=== PATIENT | female | born 1945 | race Caucasian/White ===

== ENCOUNTER → 2017-11-04 12:53 | Outpatient (CLI) | payer MEDICARE, SELFPAY ==
--- NOTE | 2017-11-04 09:00 | PET_ITS ---
EXAMINATION: FDG PET-CT INDICATIONS: A 72-year-old female with reported history of primary breast and lung carcinoma presenting for restaging examination. COMPARISON EXAMINATION: None available INDEX LESION SIZE SUV INTERPRETATION Mediastinum, multifocal 16.2-mm (largest) (frame 206) 7.9 (max) Fulfills quantitative criteria for viable neoplasm Left lateral neck, bilateral anterior neck, right supraclavicular region lymphadenopathy 20.8 x 22.4-mm (largest) (frame 241) 18.9 (max) Fulfills quantitative criteria for viable neoplasm Left adrenal gland 6.7 Fulfills quantitative criteria for viable neoplasm Abdominal retroperitoneum, meño-hepatis 18.3 x 18.9-mm (largest) (frame 148) 9.7 (max) Fulfills quantitative criteria for viable neoplasm Right lobe hepatic parenchyma (n=2) segment VIII 28.4 x 22.5-mm (largest) (Frame 105) 13.6 (max) ratio > 2.0 Fulfills quantitative criteria for viable neoplasm Sacrum 6.9 Fulfills quantitative criteria for viable neoplasm TECHNIQUE: Following the intravenous administration of F-18 deoxyglucose, multiplanar image acquisitions of the neck, chest, abdomen and pelvis to level of mid thigh, obtained at one hour post radiopharmaceutical administration contemporaneously interpreted with the current CT of the neck, chest, abdomen and pelvis, to level of mid thigh, dated 11/04/17 via coregistration reveals: FINDINGS: 1. Multifocal increased glucose concentration is noted in the superior-subcarinal anterior and middle mediastinum generating a corrected maximum calculated standard uptake value of 7.9. The maximal axial diameter of the largest, non-calcified most conspicuous hypermetabolic soft tissue density on review of CT of the thorax dated 11/04/17 is 16.2-mm (transverse). 2. An increase in radiopharmaceutical uptake is demonstrated in the left lateral neck involving level II-A, III, right supraclavicular region and bilateral anterior neck generating a corrected maximum calculated standard uptake value of 18.9. The maximal axial diameter of the largest individual hypermetabolic soft tissue density on review of CT of the neck dated 11/04/17 is approximately 20.8-mm (transverse) x 22.4-mm (AP). 3. Increased labeled glucose concentration is defined in the left upper abdomen which appears contiguous to the left adrenal gland generating a corrected maximum calculated standard uptake value of 6.7. 4. Enhanced glucose metabolism is demonstrated in the upper abdominal retroperitoneum in the midline and distribution of the meño-hepatis corresponding to soft tissue adenopathy generating a corrected maximum calculated standard uptake value of 9.7. The maximal axial diameter of the largest individual hypermetabolic soft tissue density on review of CT of the abdomen dated 11/04/17 is 18.3-mm (transverse) x 18.9-mm (AP). 5. Facilitated glucose concentration is visualized in the right lobe of the hepatic (2.8) parenchyma involving segment VIII in two separate nodular presentations, rendering a corrected maximum calculated standard uptake value of 13.6, with a lesion to liver background ratio greater than 2.0. The maximal axial diameter of the largest, most conspicuous metabolic abnormality on review of CT of the abdomen dated 11/04/17 is 28.4-mm (transverse) x 22.5-mm (AP). 6. Increased radiotracer concentration is defined in the sacrum-second sacral segment generating a corrected maximum calculated standard uptake value of 6.9. 7. Normal physiologic distribution of the radiopharmaceutical is apparent in the splenic parenchyma, both renal units, bladder and visualized intestinal tract. The visualized portion of the cerebral cortex, cerebellar hemispheres and basal ganglia demonstrates uniform and preserved glucose metabolism. Diffuse radiopharmaceutical concentration is noted in all four quadrants of the abdomen and pelvis. Symmetric muscle tension artifact is noted in the subscapularis musculature bilaterally. Pertinent CT findings are as follows: CHEST: Emphysematous change is noted in the bilateral upper-mid lung zones. There are no parenchymal densities-nodules demonstrated in the right-left hemithorax manifesting quantitatively significant increased glucose metabolism. Surgical clips are identified in the right axilla. The right breast is surgically absent. A prominent pericardial effusion is defined without evidence of increased glucose metabolism. There is atherosclerotic calcification defined in the thoracic aorta without evidence of dilatation-aneurysm formation. Coronary arterial calcification is observed. Calcified mediastinal and thoracic perihilar soft tissue is ametabolic. ABDOMEN AND PELVIS: There is atherosclerotic calcification defined in the abdominal aorta without evidence of dilatation-aneurysm formation. Abdominal-pelvic arterial calcification is observed. Calcifications appear evident in the region of the pancreatic body. Bilateral subcentimeter inguinal soft tissue densities are non-glucose avid. The uterus is not clearly identified. Calcified granuloma formation is noted within the splenic parenchyma. SKELETAL: Degenerative changes are noted in the cervical, thoracic and lumbar spine. There are no well-defined sclerotic-lytic changes manifest on review of the appendicular-axial skeletal structures. PET/PET/CT Tumor Base -Thigh Init IMPRESSION: 1. ABNORMAL EXAMINATION INDICATIVE OF MALIGNANT VIABLE NEOPLASM. 2. Increased glucose concentration noted in the superior-subcarinal middle and anterior mediastinum fulfills quantitative criteria for viable neoplasm. (Carmen et al, Journal of Clinical Oncology 16:2142, 1998). 3. Viable neoplastic transformation is demonstrated in the bilateral-lateral neck, right supraclavicular region and right-left anterior neck corresponding to lymphadenopathy, lymph nodes. 4. Neoplasm is demonstrated in the distribution of the left adrenal gland. 5. Abdominal retroperitoneal and meño-hepatic hypermetabolic foci fulfill quantitative criteria for viable neoplasm. 6. The increase in radiopharmaceutical concentration noted in the right lobe of the hepatic parenchyma fulfills quantitative criteria for viable neoplasm. (Napoleonbejin et al, Archives of Surgery, 133:510 1997). 7. Osseous neoplastic involvement is limited to the second sacral segment as defined above. (Jeri et al, Clinical Nuclear Medicine, 29:161, 2004). Electronic Signature Pablo Varghese D.O. Electronically Signed: Pablo Varghese DO at 13:34 EDT Tel , Service support ,
== END ==
PROVIDERS: Family Provider Internal Medicine; PCP Internal Medicine; Visit Provider Internal Medicine Hematology & Oncology
DX: C34.01 Malignant neoplasm of right main bronchus (principal)
CPT/HCPCS: 78815; A9552; A4216

== ENCOUNTER → 2017-11-22 08:48 | Outpatient (CLI) | payer MEDICARE, SELFPAY ==
--- NOTE | 2017-11-22 08:52 | CT_ITS ---
STUDY: CT ABDOMEN WITHOUT CONTRAST REASON FOR EXAM: Female, 72 years old. The patient was scheduled for a biopsy of the anterior superior aspect of the right lobe of the liver. RADIATION DOSAGE (If Supplied By Facility): CTDIvol = ( 12.47 ) mGy, DLP = ( 901.74 ) mGycm TECHNIQUE: Transaxial images were obtained without intravenous contrast, and oral contrast. Sagittal and coronal images were reconstructed. Individualized dose optimization techniques were used for this CT. COMPARISON: None. FINDINGS: The patient was placed in the left lateral decubitus as well as supine positions. The nodule is seen along the anterior superior aspect of the right lobe of the liver. No safe approach without entering the lungs was available. The biopsy was canceled. Moderate sized pericardial effusion. CT/Limited or Localized F/U CT IMPRESSION: Biopsy not performed due to the location of the lesion in the anterior superior aspect of the right lobe of the liver. No safe access was available. Electronically Signed: Sunday Pettit MD at 15:14 EDT Tel [phone], Service support ,
[2017-11-22 09:18] VITALS: BP 130/66; PULSE 83; RESP 18; TEMP 36.5; O2SAT 94; BMI 24.0
[2017-11-22 09:44] LABS: International Normalized Ratio 1.1; Partial Thromboplast Time 28.8 Seconds (24.1-36.2); Prothrombin Time (Protime)PT. 13.9 SECONDS (11.7-14.9)
--- NOTE | 2017-11-22 11:00 | NURSING ---
1030 procedure unable to proceed per Dr. Pettit, due to location of area of concern and closeness to lung, patient informed and explained why we could not do the procedure, IV remved and patient discharged, called transport for patient.
== END ==
PROVIDERS: Visit Provider Internal Medicine Hematology & Oncology
DX: K76.89 Other specified diseases of liver (principal); Z85.118 Personal history of other malignant neoplasm of bronchus and lung
CPT/HCPCS: 36415; 76380; 85610; 85730; J7040; A4216

== ENCOUNTER 2017-11-29 19:36 | Observation (INO) | payer MEDICARE, SELFPAY ==
[2017-11-29 19:39] VITALS: BP 167/92; PULSE 96; RESP 17; TEMP 37.1; O2SAT 96; BMI 23.6
--- NOTE | 2017-11-29 20:05 | EKG12_ITS ---
Test Reason : NAUSEA/VOMITING Blood Pressure : / mmHG Vent. Rate : 096 BPM Atrial Rate : 096 BPM P-R Int : 174 ms QRS Dur : 090 ms QT Int : 386 ms P-R-T Axes : 064 -54 079 degrees QTc Int : 487 ms Sinus rhythm with Premature ventricular complexes or Fusion complexes Left axis deviation Low voltage QRS Inferior infarct , age undetermined Abnormal ECG Confirmed by SHERLEY TORRES, ASTON ([id number]), purchase request editor MERARY OJEDA ([id number]) on 12/02/2017 4:01:48 PM Referred By: Pepe Marquez Confirmed By:ASTON LEPE MD
[2017-11-29 20:28] LABS: Absolute Lymphocyte Count 0.99 X10^3/ul (0.83-4.51); Absolute Neutrophil Count 8.5 X10^3/uL (2.0-7.7); Basophil# 0.06 X10^3/uL; Basophil% 0.6 % (0-1); Eosinophil# 0.18 X10^3/uL; Eosinophils% 1.8 % (0-5); Hematocrit 41.2 % (37-47); Hemoglobin 13.5 g/dl (12.0-15.0); Lymphocyte # 0.99 X10^3/ul (4.0); Lymphocyte % 9.6 % (19-41); Mean Corp Hgb Conc 32.8 g/gl (32-36); Mean Corpuscular Hgb 29.7 pg (27.0-32.0); Mean Corpuscular Volume 90.5 fL (81-99); Mean Platelet Vol. 10.7 fl (6.2-12.0); Monocyte% 4.9 % (0-10); Neutrophil # 8.53 X10^3/uL (2.7-7.7); Platelet Count 232 K/mm3 (150-450); RBC Distribution Width CV 13.2 % (11.6-14.6); RBC Distribution Width SD 43.4 fl (35.1-43.9); Red Blood Count 4.55 M/mm3 (4.2-5.4); White Blood Count 10.3 K/mm3 (4.4-11.0)
[2017-11-29] MEDS: Ondansetron 4 MG/2 ML Vial IV ×2 (20:28→22:56)
[2017-11-29] MEDS: 0.9% Normal Saline 1,000 ML 1000 ML IV (20:28)
[2017-11-29 20:29] LABS: POSITIVE COUNT NO; POSITIVE DIFFERENTIAL NO; POSITIVE MORPHOLOGY NO
[2017-11-29 20:44] LABS: ALB/GLOB Ratio 0.8 RATIO (0.9-2.4); AST(SGOT) 14 U/L (15-37); Alanine Aminotransfer ALT/SGPT 15 U/L (13-56); Albumin, Serum 3.6 g/dL (3.2-5.0); Alkaline Phosphatase 96 U/L (45-117); Anion Gap 8 (5-15); BUN 16 mg/dL (7-18); BUN/Creat Ratio 16.2 RATIO (10-20); Calcium,Total 9.1 mg/dL (8.5-10.1); Chloride 103 mmol/L (98-107); Creatinine, Serum 0.99 mg/dL (0.55-1.02); EST Glomerular Filtration Rate 59 mL/min (>60); Est Glom Filt Rate - Afr Amer 71 mL/min (>60); Globulin 4.5 g/dL (2.2-4.2); Glucose 119 mg/dL (74-106); Lipase 111 U/L (73-393); Potassium 4.2 mmol/L (3.5-5.1); Protein, Total 8.1 g/dL (6.4-8.2); Sodium Level 139 mmol/L (136-145)
[2017-11-29 22:38] VITALS: BP 144/86; PULSE 103; RESP 12; O2SAT 97
[2017-11-29] MEDS: Morphine 4 MG/ML Syringe IV (22:56)
--- NOTE | 2017-11-29 23:30 | ED.VISSUMM ---
- ER Visit Summary Date of Service: 11/29/17 Chief Complaint: Patient presents with nausea History of Present Illness: The patient is a 72 F with metastatic lung cancer presents with nausea and vomiting. This is been worse since yesterday. No abdominal pain. No diarrhea. No fever or chills. She is in assisted living. Physical Examination: She looks chronically ill, cachectic. She is tachycardic, she has coarse breath sounds she has no abdominal pain to palpation she has dry mucous membranes Emergency Department Course and Treatment: Patient was given multiple doses of antiemetics as well as analgesics since she developed epigastric pain, for pain she continues to feel quite ill, she is in assisted living, because of this she cannot go back I will admit her to the hospital. Disposition: Admitted in stable condition Impression: Intractable nausea vomiting and abdominal pain Metastatic lung cancer This note was generated with [employer] dictation software. It may contain incorrect words, spelling, and punctuation that were not noted in review of the chart prior to signing ED Disposition - Plan for ED Patient: Chief Complaint: Nausea/Vomiting Referrals: Marsha Omalley, STEAM CLEANING MACHINE OPERATOR-C [Primary Care Provider] -
--- NOTE | 2017-11-29 23:34 | ED.DCSUM_ITS ---
- ER Visit Summary Date of Service: 11/29/17 Chief Complaint: Patient presents with nausea History of Present Illness: The patient is a 72 F with metastatic lung cancer presents with nausea and vomiting. This is been worse since yesterday. No abdominal pain. No diarrhea. No fever or chills. She is in assisted living. Physical Examination: She looks chronically ill, cachectic. She is tachycardic, she has coarse breath sounds she has no abdominal pain to palpation she has dry mucous membranes Emergency Department Course and Treatment: Patient was given multiple doses of antiemetics as well as analgesics since she developed epigastric pain, for pain she continues to feel quite ill, she is in assisted living, because of this she cannot go back I will admit her to the hospital. Disposition: Admitted in stable condition Impression: Intractable nausea vomiting and abdominal pain Metastatic lung cancer This note was generated with [employer] dictation software. It may contain incorrect words, spelling, and punctuation that were not noted in review of the chart prior to signing ED Disposition - Plan for ED Patient: Chief Complaint: Nausea/Vomiting Referrals: Marsha Omalley, BUS ESCORT-C [Primary Care Provider] -
--- NOTE | 2017-11-29 23:49 | ED.DCSUM_ITS ---
- ER Visit Summary Date of Service: 11/29/17 Addendum -patient significantly improved, she is now requesting to be discharged. I will discharge her back. This note was generated with [employer] dictation software. It may contain incorrect words, spelling, and punctuation that were not noted in review of the chart prior to signing ED Disposition - Plan for ED Patient: Disposition: Home or Assisted Living Chief Complaint: Nausea/Vomiting Instructions: ED Nausea Vomiting Referrals: Marsha Omalley, SWIMMING POOL SERVICER-C [Primary Care Provider] - 2 Days
[2017-11-30] VITALS (7 sets, daily range): BP systolic 108–158; BP diastolic 78–97; PULSE 75–105; RESP 13–20; TEMP 36.4–37; O2SAT 95–100; BMI 23.6; BMI 23.7
[2017-11-30] MEDS: Ondansetron 4 MG/2 ML Vial IV (00:20)
[2017-11-30] MEDS: diazePAM 5 MG Tablet PO (00:34)
[2017-11-30] MEDS: fentaNYL 100 MCG/2 ML Ampul 25 MCG IV (01:31)
--- NOTE | 2017-11-30 01:47 | ED.RN ---
UPON TRYING TO DISCHARGE PT, PT REPORTS, I FEEL SICK, AND BEGAN VOMITING AGAIN. INFORMED. PT CONCERNED SHE IS VOMITING BLOOD. CONCERN RELAYED TO
--- NOTE | 2017-11-30 02:07 | RAD_ITS ---
STUDY: X-RAY - ACUTE ABDOMINAL SERIES REASON FOR EXAM: Female, 72 years old. Nausea, vomiting, right breast cancer, lung scan and liver. TECHNIQUE: Single view of the chest. Supine, and erect view(s) of the abdomen were obtained. COMPARISON: PET scan 11/04/2017 FINDINGS: There are superimposed monitor leads. Right chest wall postsurgical changes. The lungs are clear and emphysematous. Stable calcified granulomata left base. There is mild cardiomegaly. Normal mediastinum and denise. Normal visualized pulmonary arteries. Normal visualized aortic arch and descending thoracic aorta. There is an abundance of fecal material throughout the colon. The soft tissue structures of the abdomen and pelvis are unremarkable. There are diffuse degenerative changes of the visualized lumbar spine. Rotatory dextro scoliosis at the thoracolumbar spine level. There is demineralization of osseous structures. RAD/Acute Abd Inc Chest (Portable) IMPRESSION: Abundant amount of retained fecal material without obstruction. Stable emphysema, distortion of the right perihilar parenchyma. There are mild cardiac enlargement and remote granulomatous exposure. Electronically Signed: Cande Alaniz MD at 3:36 EDT , Service support ,
--- NOTE | 2017-11-30 02:55 | HP.PCM_ITS ---
Problem List (1) Metastatic lung cancer (metastasis from lung to other site) Status: Acute (2) Tobacco dependence in remission Status: Chronic (3) History of lung cancer Status: Chronic (4) History of right mastectomy Status: Resolved (5) History of hysterectomy Status: Resolved (6) History of left heart catheterization Status: Resolved (7) History of appendectomy Status: Resolved (8) HTN (hypertension) Status: Chronic Qualifiers: (9) HLD (hyperlipidemia) Status: Chronic Qualifiers: (10) CAD (coronary artery disease) Status: Chronic Qualifiers: (11) History of CVA (cerebrovascular accident) Status: Chronic History of Present Illness Date of Admission: 11/30/17 Chief Complaint: nausea and vomiting The patient is a 72 year old female with a significant past medical history of metastatic ling cancer who presents to the er with worsening nausea and vomiting. Despite several rounds of Zofran, Valium and promethazine they were able to get adequate control of her nausea and vomiting.She is followed by Dr Marquez and Dr Mackay for her pulmonary care. She will be admitted for intractable nausea and vomiting. Past Medical History Past Medical History (Chronic Problems): Chronic Problems (Last Reviewed 11/02/17 @ 14:41 by Lorena Allred NP-C) Tobacco dependence in remission (Chronic) History of lung cancer (Chronic) Wheezing (Chronic) Stage 3 severe COPD by GOLD classification (Chronic) FEV1 55% of predicted Pericardial effusion (Chronic) HTN (hypertension) (Chronic) HLD (hyperlipidemia) (Chronic) CAD (coronary artery disease) (Chronic) CHF (congestive heart failure) (Chronic) Hypothyroidism (Chronic) Anxiety (Chronic) COPD (chronic obstructive pulmonary disease) (Chronic) Chronic respiratory failure with hypoxia (Chronic) 3L NC baseline. History of CVA (cerebrovascular accident) (Chronic) Medical History: Medical History (Last Reviewed 11/02/17 @ 14:41 by Lorena Allred NP-C) Pneumonia (Resolved) J18.9 Wheezing (Chronic) R06.2 Stage 3 severe COPD by GOLD classification (Chronic) J44.9 FEV1 55% of predicted Pericardial effusion (Chronic) I31.3 HTN (hypertension) (Chronic) I10 HLD (hyperlipidemia) (Chronic) E78.5 CAD (coronary artery disease) (Chronic) I25.10 CHF (congestive heart failure) (Chronic) I50.9 Hypothyroidism (Chronic) E03.9 Anxiety (Chronic) F41.9 COPD (chronic obstructive pulmonary disease) (Chronic) J44.9 Chronic respiratory failure with hypoxia (Chronic) J96.11 3L NC baseline. History of CVA (cerebrovascular accident) (Chronic) Z86.73 CAP (community acquired pneumonia) (Acute) J18.9 Allergies prednisone Adverse Reaction (Verified 11/29/17 19:38) Other CONFUSION Home Medications: Ambulatory Orders Medication Instructions Recorded ALPRAZolam [Xanax] 1 mg PO BID 05/30/16 Albuterol Inhaler [Ventolin Hfa] 1 - 2 puff INHALATION Q4H PRN PRN 05/30/16 Dexlansoprazole [Dexilant] 60 mg PO PRN PRN 05/30/16 Fluticasone 0.05% [Flonase Nasal 1 spray NASAL DAILY PRN 05/30/16 [place]] Levothyroxine [Synthroid] 88 mcg PO DAILY 05/30/16 Meloxicam [Mobic] 7.5 mg PO QHS 05/30/16 Potassium Chloride [K-Dur] 10 meq PO QODAY 05/30/16 Pravastatin [Pravachol] 20 mg PO QHS 05/30/16 Ipratropium/Albuterol Sulfate 3 ml INHALATION Q6H.RT #120 01/08/17 [Duoneb] ampul.neb Buprenorphine 1 ea TD QWEEK 04/07/17 Ondansetron [Zofran Odt] 4 mg PO Q8H PRN PRN #10 tab 04/07/17 Guaifenesin/Dextromethorphan 1 ea PO BID 05/28/17 [Mucinex Dm ER 600-30 mg Tablet] Lisinopril [Zestril] 10 mg PO DAILY 30 Days #30 tab 06/04/17 budesonide 0.25 mg/2 mL suspension 0.25 mg INHALATION Q12H 06/16/17 for nebulization carvedilol 25 mg tablet 25 mg PO DAILY tab 06/16/17 cholecalciferol (vitamin D3) 2,000 2,000 unit PO DAILY 06/16/17 unit capsule furosemide 20 mg tablet 10 mg PO QDAY tab 06/16/17 melatonin 3 mg tablet 3 mg PO HS 06/16/17 montelukast 10 mg tablet 10 mg PO QPM 06/16/17 Surgical History: Surgical History (Last Reviewed 11/02/17 @ 14:41 by FREDRICK Malik) History of right mastectomy (Resolved) Z98.890, Z90.11 History of hysterectomy (Resolved) Z98.890, Z90.710 History of left heart catheterization (Resolved) Z98.890 History of appendectomy (Resolved) Z98.890, Z90.49 Surgical History: - - PCI ?1, left carotid endarterectomy, appendectomy, hysterectomy, right mastectomy Psychiatric History: Anxiety PROBATION COUNSELOR History: No pertinent PROBATION COUNSELOR history Smoking Status: Former smoker - *Family History Maternal Family History: Family History (Last Reviewed 11/02/17 @ 14:41 by FREDRICK Malik) Mother Hypertension Heart disease Sister Breast cancer Father Heart disease History Items: Heart Disease, Hypertension Paternal Family History: Family History (Last Reviewed 11/02/17 @ 14:41 by FREDRICK Malik) Mother Hypertension Heart disease Sister Breast cancer Father Heart disease History Items: Heart Disease, Hypertension Sibling Family History: Family History (Last Reviewed 11/02/17 @ 14:41 by Lorena Allred NP-Gris) Mother Hypertension Heart disease Sister Breast cancer Father Heart disease History Items: Cancer - breast, Heart Disease, Hypertension, - - JACQUE Offspring Family History: Family History (Last Reviewed 11/02/17 @ 14:41 by Lorena Allred NP-Gris) Mother Hypertension Heart disease Sister Breast cancer Father Heart disease History Items: No pertinent history Review of Systems Constitutional: Reports: Chills. Denies: Fever, Weight Change HEENT: Denies: Head Aches, Sinus Congestion, Sinus Drainage Cardiovascular: Denies: Chest Pain, Palpitations Respiratory: Denies: Cough, Shortness of breath at rest, Sputum production Gastrointestinal: Denies: Abdominal Pain, Nausea, Vomiting Genitourinary: Denies: Dysuria Musculoskeletal: Denies: Joint Pain, Joint Tenderness Skin: Denies: Rash, Wounds Neurological: Reports: Confusion. Denies: Focal weakness, Numbness, Tingling Psychiatric: Denies: Anxiety, Depression, Homicidal Ideations, Suicidal Ideations Hematologic/ Lymphatic: Denies: Easy Bruising, Easy Bleeding VTE Information - Inpt Only VTE Present on Admission: No VTE Mechan Device Prophylaxis: SCD's VTE Pharm Prophylaxis ordered?: No Patient Problems: Active and Suspected Problems (Last Reviewed 11/02/17 @ 14:41 by Lorena Allred NP-C) Metastatic lung cancer (metastasis from lung to other site) (Acute) - Physical Exam Vital Signs Temp Pulse Resp BP Pulse Ox 98.8 F 97 19 H 140/80 H 100 11/29/17 19:39 11/30/17 01:32 11/30/17 01:32 11/30/17 01:32 11/30/17 01:32 Oxygen Flow Rate (L/min) 2 Oxygen Delivery Method Nasal Cannula Weight: 125 lb 3.561 oz Body Mass Index (BMI) 23.6 Finger Stick Blood Glucose 122 Microbiology Past 72 Hours 11/30/17 01:30 Stool Occult Blood (VIET) - Final Stool Occult Blood Positive Laboratory Tests Past 24 Hrs 11/29/17 11/29/17 11/30/17 19:40 19:40 02:39 WBC 10.3 RBC 4.55 Hgb 13.5 Hct 41.2 MCV 90.5 MCH 29.7 MCHC 32.8 RDW 13.2 RDW Differential 43.4 Plt Count 232 MPV 10.7 Immature Gran % (Auto) 0.100 Neut % (Auto) 83.0 H Lymph % (Auto) 9.6 L Humphreys % (Auto) 4.9 Eos % (Auto) 1.8 Baso % (Auto) 0.6 Absolute Neuts (auto) 8.5 H Absolute Lymphs (auto) 0.99 Total Counted Not Reportable PT Pending INR Pending Sodium 139 Potassium 4.2 Chloride 103 Carbon Dioxide 28.0 Anion Gap 8 BUN 16 Creatinine 0.99 Estim Creat Clear Calc 39.90 Est GFR (MDRD) Af Amer 71 Est GFR (MDRD) Non-Af 59 L BUN/Creatinine Ratio 16.2 Glucose 119 H Calcium 9.1 Total Bilirubin 0.40 AST 14 L ALT 15 Alkaline Phosphatase 96 Total Protein 8.1 Albumin 3.6 Globulin 4.5 H Albumin/Globulin Ratio 0.8 L Lipase 111 Assessment/Plan All Active Problems (Last Reviewed 11/02/17 @ 14:41 by Lorena Allred ELECTRICAL WIRER-C) Metastatic lung cancer (metastasis from lung to other site) (Acute) History of right mastectomy (Resolved) History of hysterectomy (Resolved) History of left heart catheterization (Resolved) History of appendectomy (Resolved) Pneumonia (Resolved) CAP (community acquired pneumonia) (Acute) plan - admit to general medical floor - normal saline at 50cc/hour - cbc, CMP in am - zofran 8mg tid prn - phenergan 12.5mh IV q six Code Visit Inpatient E&M: 74504 Init Hosp L2
[2017-11-30 02:59] LABS: International Normalized Ratio 1.1; Prothrombin Time (Protime)PT. 14.6 SECONDS (11.7-14.9)
--- NOTE | 2017-11-30 03:17 | NURSING ---
Called [facility] charge nursetaniya to send patient to the floor.
[2017-11-30] MEDS: proMETHazine 25 MG/ML Syringe 12.5 MG IV (04:25)
[2017-11-30] MEDS: 0.9% NaCl Peripheral Flush Adult/Peds IV ×2 (04:26→04:33)
[2017-11-30] MEDS: 0.9% Normal Saline 1,000 ML 50 ML IV (05:20)
[2017-11-30 06:58] LABS: ALB/GLOB Ratio 0.8 RATIO (0.9-2.4); AST(SGOT) 14 U/L (15-37); Alanine Aminotransfer ALT/SGPT 16 U/L (13-56); Albumin, Serum 3.5 g/dL (3.2-5.0); Alkaline Phosphatase 91 U/L (45-117); Anion Gap 10 (5-15); BUN 14 mg/dL (7-18); BUN/Creat Ratio 15.3 RATIO (10-20); Calcium,Total 8.5 mg/dL (8.5-10.1); Chloride 103 mmol/L (98-107); Creatinine, Serum 0.92 mg/dL (0.55-1.02); EST Glomerular Filtration Rate 64 mL/min (>60); Est Glom Filt Rate - Afr Amer 78 mL/min (>60); Estimated Creatinine Clearance 42.94 ml/min; Globulin 4.3 g/dL (2.2-4.2); Glucose 146 mg/dL (74-106); Hematocrit 39.9 % (37-47); Hemoglobin 13.3 g/dl (12.0-15.0); Mean Corp Hgb Conc 33.3 g/gl (32-36); Mean Corpuscular Hgb 29.6 pg (27.0-32.0); Mean Corpuscular Volume 88.7 fL (81-99); Mean Platelet Vol. 10.8 fl (6.2-12.0); Potassium 3.6 mmol/L (3.5-5.1); Protein, Total 7.8 g/dL (6.4-8.2); RBC Distribution Width CV 13.2 % (11.6-14.6); RBC Distribution Width SD 42.4 fl (35.1-43.9); Sodium Level 138 mmol/L (136-145); White Blood Count 12.1 K/mm3 (4.4-11.0)
[2017-11-30 07:10] LABS: Scan Indicated on CBC? Y/N YES- FLAGS NOTED
[2017-11-30 07:12] LABS: Differential Comment SCANNED
[2017-11-30] MEDS: Tamsulosin HCl 0.4 MG Capsule PO (09:17)
[2017-11-30] MEDS: Carvedilol 25 MG Tablet PO (09:18)
[2017-11-30] MEDS: Levothyroxine 88 MCG Tablet PO (09:19)
[2017-11-30] MEDS: Magnesium Hydroxide 30 ML UDC PO (09:21)
[2017-11-30] MEDS: Lisinopril 10 MG Tablet PO (09:21)
[2017-11-30] MEDS: ALPRAZolam 0.5 MG Tablet 1 MG PO (09:39)
[2017-11-30] MEDS: Ipratropium/Albuterol Sulfate 3 ML AMPUL.NEB INHALATION (13:10)
--- NOTE | 2017-11-30 13:18 | PCM.DC ---
- Discharge Diagnoses Current Active Problems: Current Active and Chronic Problems (Last Reviewed 11/02/17 @ 14:41 by FREDRICK Malik) Metastatic lung cancer (metastasis from lung to other site) (Acute) You will use the following diet at home:: Cardiac Your food should be the consistency of: Regular Discharge Activity: Return to Normal Activity Weight Bearing Status: Weight bearing as tolerated Call your doctor if you observe: Fever of 101 or Higher, Shortness of breath, Dizziness, Fainting spells, Chest pain, Increased palpitations (irregular heartbeat), Uncontrolled pain Instructions: ED Nausea Vomiting Additional Instructions: Please do bladder scan every 8hrs for 2 days, if she is retaining more than 300 cc of urine, insert Salazar catheter, continue Flomax, leave the catheter in for 3 days and then do voiding trail by taking the Salazar out. If she is still retaining urine, please refer her to Urology as out patient. Allergies/Adverse Reactions: Allergies prednisone Adverse Reaction (Verified 11/29/17 19:38) Other CONFUSION Medications to take at Discharge ALPRAZolam [Xanax] 1 mg PO BID 05/30/16 Albuterol Inhaler [Ventolin Hfa] 1 - 2 puff INHALATION Q4H PRN PRN 05/30/16 Dexlansoprazole [Dexilant] 60 mg PO PRN PRN 05/30/16 Fluticasone 0.05% [Flonase Nasal [place]] 1 spray NASAL DAILY PRN 05/30/16 Levothyroxine [Synthroid] 88 mcg PO DAILY 05/30/16 Meloxicam [Mobic] 7.5 mg PO QHS 05/30/16 Potassium Chloride [K-Dur] 10 meq PO QODAY 05/30/16 Pravastatin [Pravachol] 20 mg PO QHS 05/30/16 Ipratropium/Albuterol Sulfate [Duoneb] 3 ml INHALATION Q6H.RT #120 ampul.neb 01/08/17 Buprenorphine 1 ea TD QWEEK 04/07/17 Ondansetron [Zofran Odt] 4 mg PO Q8H PRN PRN #10 tab 04/07/17 Guaifenesin/Dextromethorphan [Mucinex Dm ER 600-30 mg Tablet] 1 ea PO BID 05/28/17 Lisinopril [Zestril] 10 mg PO DAILY 30 Days #30 tab 06/04/17 budesonide 0.25 mg/2 mL suspension for nebulization 0.25 mg INHALATION Q12H 06/16/17 carvedilol 25 mg tablet 25 mg PO DAILY tab 06/16/17 cholecalciferol (vitamin D3) 2,000 unit capsule 2,000 unit PO DAILY 06/16/17 furosemide 20 mg tablet 10 mg PO QDAY tab 06/16/17 melatonin 3 mg tablet 3 mg PO HS 06/16/17 montelukast 10 mg tablet 10 mg PO QPM 06/16/17 Tamsulosin HCl [Flomax] 0.4 mg PO DAILY@1730 #30 cap 11/30/17 The following prescriptions were given: Tamsulosin HCl [Flomax] 0.4 mg PO DAILY@1730 #30 cap Primary Care Physician: Marsha Omalley NP-C [Primary Care Provider] - 2 Days Please follow up with your Primary Care Physician in: 1 week. Please Follow Up With: Pepe Marquez, When: please call his office.
--- NOTE | 2017-11-30 13:22 | DCINST_ITS ---
- Discharge Diagnoses Current Active Problems: Current Active and Chronic Problems (Last Reviewed 11/02/17 @ 14:41 by FREDRICK Malik) Metastatic lung cancer (metastasis from lung to other site) (Acute) You will use the following diet at home:: Cardiac Your food should be the consistency of: Regular Discharge Activity: Return to Normal Activity Weight Bearing Status: Weight bearing as tolerated Call your doctor if you observe: Fever of 101 or Higher, Shortness of breath, Dizziness, Fainting spells, Chest pain, Increased palpitations (irregular heartbeat), Uncontrolled pain Instructions: ED Nausea Vomiting Additional Instructions: Please do bladder scan every 8hrs for 2 days, if she is retaining more than 300 cc of urine, insert Salazar catheter, continue Flomax, leave the catheter in for 3 days and then do voiding trail by taking the Salazar out. If she is still retaining urine, please refer her to Urology as out patient. Allergies/Adverse Reactions: Allergies prednisone Adverse Reaction (Verified 11/29/17 19:38) Other CONFUSION Medications to take at Discharge ALPRAZolam [Xanax] 1 mg PO BID 05/30/16 Albuterol Inhaler [Ventolin Hfa] 1 - 2 puff INHALATION Q4H PRN PRN 05/30/16 Dexlansoprazole [Dexilant] 60 mg PO PRN PRN 05/30/16 Fluticasone 0.05% [Flonase Nasal [place]] 1 spray NASAL DAILY PRN 05/30/16 Levothyroxine [Synthroid] 88 mcg PO DAILY 05/30/16 Meloxicam [Mobic] 7.5 mg PO QHS 05/30/16 Potassium Chloride [K-Dur] 10 meq PO QODAY 05/30/16 Pravastatin [Pravachol] 20 mg PO QHS 05/30/16 Ipratropium/Albuterol Sulfate [Duoneb] 3 ml INHALATION Q6H.RT #120 ampul.neb 09/21 Buprenorphine 1 ea TD QWEEK 04/07/17 Ondansetron [Zofran Odt] 4 mg PO Q8H PRN PRN #10 tab 04/07/17 Guaifenesin/Dextromethorphan [Mucinex Dm ER 600-30 mg Tablet] 1 ea PO BID Lisinopril [Zestril] 10 mg PO DAILY 30 Days #30 tab 06/04/17 budesonide 0.25 mg/2 mL suspension for nebulization 0.25 mg INHALATION Q12H 03/24 carvedilol 25 mg tablet 25 mg PO DAILY tab 06/16/17 cholecalciferol (vitamin D3) 2,000 unit capsule 2,000 unit PO DAILY 06/16/17 furosemide 20 mg tablet 10 mg PO QDAY tab 06/16/17 melatonin 3 mg tablet 3 mg PO HS 06/16/17 montelukast 10 mg tablet 10 mg PO QPM 06/16/17 Tamsulosin HCl [Flomax] 0.4 mg PO DAILY@1730 #30 cap 11/30/17 The following prescriptions were given: Tamsulosin HCl [Flomax] 0.4 mg PO DAILY@1730 #30 cap Primary Care Physician: Marsha Omalley NP-C [Primary Care Provider] - 2 Days Please follow up with your Primary Care Physician in: 1 week. Please Follow Up With: Pepe Marquez, When: please call his office.
--- NOTE | 2017-11-30 13:47 | CASEMGMT ---
THOMAS BOWSER NOTE: Faxed discharge instructions and script to [facility] @ [phone] Torrey KUMAR RN, CM
--- NOTE | 2017-11-30 14:25 | CASEMGMT ---
RN MAGUE NOTE: Received call from [facility]. Pt's sister unable to provide transportation for pt. RN MAGUE spoke with pt re: w/c transportation. Pt is agreeable to [facility] Amb[facility]. Call to [facility]. Will provide transportation. Nurse updated and ambulette form completed. Torrey KUMAR RN CM
--- NOTE | 2017-11-30 15:00 | PCM.DC.SUM ---
Discharge Date and Diagnosis Date of Admission: 11/30/17 Date of Discharge: 11/30/17 - Primary Discharge Diagnosis #1 intractable nausea and vomiting. #2 urinary retention. 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 History of CVA (cerebrovascular accident) (Chronic) Hospital Course and Treatment Imaging Results: Clinical Impression(s) from Imaging Studies Acute Abdomen Series 11/30/17 02:07 IMPRESSION: Abundant amount of retained fecal material without obstruction. Stable emphysema, distortion of the right perihilar parenchyma. There are mild cardiac enlargement and remote granulomatous exposure. Electronically Signed: Cande Alaniz MD at 3:36 EDT , Service support , Operations: None Procedures: None Summary of Care Provided: Patient seen and examined on the day of discharge and appeared to be stable to be discharged home. Today, she denies any more nausea vomiting. Last night, she complained of abdominal discomfort and inability to urinate. Salazar catheter inserted and reportedly, 1400 cc of urine was drained. She complains that she has been having difficulty urinating for the last few weeks, has been urinating small amounts. Denies dysuria or hematuria. Her vital signs are stable. She remains on 2 L of oxygen and pulse ox is 95%. - Physical Exam General: Alert, Oriented x3, Cooperative, No apparent distress. HEENT: Atraumatic, PERRLA, EOMI. Neck: Supple, No JVD, Negative Carotid Bruits, Trachea Midline, Thyroid Normal. Lungs: Decreased breath sounds bilateral, otherwise clear, No rhonchi, No wheeze, No rales. Cardiovascular: Regular rate, Regular Rhythm, Normal S1, Normal S2, PMI Normal. Abdomen: Bowel Sounds Present, Soft, Non Tender, Non-Distended, No Hepato-splenomegaly. Extremities: No clubbing, No cyanosis, No edema Skin: No rashes, No breakdown Neurological: Neuro grossly intact Vital Signs are stable. Hospital course: This is a 72 years old female patient with metastatic non-small cell lung cancer with recurrence and history of chronic intractable nausea and vomiting admitted because of intractable and persistent nausea and vomiting. This intractable nausea and vomiting attributed to her cancer. According to the patient, she received chemotherapy a few years ago but not recently. She has been having problems with nausea and vomiting for the last few months. According to the Dr. Marquez, patient has been getting workup as outpatient for cancer and apparently, she has recurrence of her disease with new metastasis. X-ray abdomen revealed fecal material throughout the colon consistent with constipation. Her routine blood work was unremarkable. LFT and lipase were normal. She was treated with IV fluids and IV antiemetics and today, she has normal symptoms. Repeat LFT and lipase was normal as well as routine CBC and BMP. Overnight, patient retained urine, Salazar catheter inserted and drained 1400 cc of urine. Patient complained that she has been having difficulties urinating over the last few weeks. She was started on Flomax. Patient discharged to [facility] facility in a stable medical condition, discharged on Flomax, recommended to reinsert Salazar catheter if she is getting good more than 300 cc to keep for 3 days, recommended referral to urology as outpatient if patient continues to have urinary retention, plan to follow up with Dr. Marquez in the near future regarding further workup for metastatic recurrence non-small cell lung cancer, recommended follow-up with PCP in 1 week. Discharge Activity: Return to Normal Activity Weight Bearing Status: Weight bearing as tolerated Call your doctor if you observe: Fever of 101 or Higher, Shortness of breath, Dizziness, Fainting spells, Chest pain, Increased palpitations (irregular heartbeat), Uncontrolled pain Home Medications: Medications to take at Discharge ALPRAZolam [Xanax] 1 mg PO BID 05/30/16 Albuterol Inhaler [Ventolin Hfa] 1 - 2 puff INHALATION Q4H PRN PRN 05/30/16 Dexlansoprazole [Dexilant] 60 mg PO PRN PRN 05/30/16 Fluticasone 0.05% [Flonase Nasal [place]] 1 spray NASAL DAILY PRN 05/30/16 Levothyroxine [Synthroid] 88 mcg PO DAILY 05/30/16 Meloxicam [Mobic] 7.5 mg PO QHS 05/30/16 Potassium Chloride [K-Dur] 10 meq PO QODAY 05/30/16 Pravastatin [Pravachol] 20 mg PO QHS 05/30/16 Ipratropium/Albuterol Sulfate [Duoneb] 3 ml INHALATION Q6H.RT #120 ampul.neb 01/08/17 Buprenorphine 1 ea TD QWEEK 04/07/17 Ondansetron [Zofran Odt] 4 mg PO Q8H PRN PRN #10 tab 04/07/17 Guaifenesin/Dextromethorphan [Mucinex Dm ER 600-30 mg Tablet] 1 ea PO BID 05/28/17 Lisinopril [Zestril] 10 mg PO DAILY 30 Days #30 tab 06/04/17 budesonide 0.25 mg/2 mL suspension for nebulization 0.25 mg INHALATION Q12H 06/16/17 carvedilol 25 mg tablet 25 mg PO DAILY tab 06/16/17 cholecalciferol (vitamin D3) 2,000 unit capsule 2,000 unit PO DAILY 06/16/17 furosemide 20 mg tablet 10 mg PO QDAY tab 06/16/17 melatonin 3 mg tablet 3 mg PO HS 06/16/17 montelukast 10 mg tablet 10 mg PO QPM 06/16/17 Tamsulosin HCl [Flomax] 0.4 mg PO DAILY@1730 #30 cap 11/30/17 Following Prescrptions Were Given to Patient: Tamsulosin HCl [Flomax] 0.4 mg PO DAILY@1730 #30 cap Primary Care Physician: Marsha Omalley, CHLOE-C [Primary Care Provider] - 2 Days Please follow up with your Primary Care Physician in: 1 week. Please Follow Up With: Pepe Marquez DO When: please call his office. Patient Instructions: ED Nausea Vomiting Disposition: Asstd Living/Non-Skill NH Minutes spent on discharge:: 26 Patient Condition:: Stable Medical Necessity - Tobacco Use Smoking Status: Former smoker Meaningful Use Info Meaningful Use Diagnoses (Choose all that apply): None applicable Code Visit OBSV E&M: 03261 Observation care discharge
--- NOTE | 2017-11-30 15:07 | DS.PCM_ITS ---
Discharge Date and Diagnosis Date of Admission: 11/30/17 Date of Discharge: 11/30/17 - Primary Discharge Diagnosis #1 intractable nausea and vomiting. #2 urinary retention. 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 History of CVA (cerebrovascular accident) (Chronic) Hospital Course and Treatment Imaging Results: Clinical Impression(s) from Imaging Studies Acute Abdomen Series 11/30/17 02:07 IMPRESSION: Abundant amount of retained fecal material without obstruction. Stable emphysema, distortion of the right perihilar parenchyma. There are mild cardiac enlargement and remote granulomatous exposure. Electronically Signed: Cande Alaniz MD at 3:36 EDT , Service support , Operations: None Procedures: None Summary of Care Provided: Patient seen and examined on the day of discharge and appeared to be stable to be discharged home. Today, she denies any more nausea vomiting. Last night, she complained of abdominal discomfort and inability to urinate. Salazar catheter inserted and reportedly, 1400 cc of urine was drained. She complains that she has been having difficulty urinating for the last few weeks, has been urinating small amounts. Denies dysuria or hematuria. Her vital signs are stable. She remains on 2 L of oxygen and pulse ox is 95%. - Physical Exam General: Alert, Oriented x3, Cooperative, No apparent distress. HEENT: Atraumatic, PERRLA, EOMI. Neck: Supple, No JVD, Negative Carotid Bruits, Trachea Midline, Thyroid Normal. Lungs: Decreased breath sounds bilateral, otherwise clear, No rhonchi, No wheeze , No rales. Cardiovascular: Regular rate, Regular Rhythm, Normal S1, Normal S2, PMI Normal. Abdomen: Bowel Sounds Present, Soft, Non Tender, Non-Distended, No Hepato- splenomegaly. Extremities: No clubbing, No cyanosis, No edema Skin: No rashes, No breakdown Neurological: Neuro grossly intact Vital Signs are stable. Hospital course: This is a 72 years old female patient with metastatic non-small cell lung cancer with recurrence and history of chronic intractable nausea and vomiting admitted because of intractable and persistent nausea and vomiting. This intractable nausea and vomiting attributed to her cancer. According to the patient, she received chemotherapy a few years ago but not recently. She has been having problems with nausea and vomiting for the last few months. According to the Dr. Marquez, patient has been getting workup as outpatient for cancer and apparently, she has recurrence of her disease with new metastasis. X -ray abdomen revealed fecal material throughout the colon consistent with constipation. Her routine blood work was unremarkable. LFT and lipase were normal. She was treated with IV fluids and IV antiemetics and today, she has normal symptoms. Repeat LFT and lipase was normal as well as routine CBC and BMP. Overnight, patient retained urine, Salazar catheter inserted and drained 1400 cc of urine. Patient complained that she has been having difficulties urinating over the last few weeks. She was started on Flomax. Patient discharged to [facility] facility in a stable medical condition, discharged on Flomax, recommended to reinsert Salazar catheter if she is getting good more than 300 cc to keep for 3 days, recommended referral to urology as outpatient if patient continues to have urinary retention, plan to follow up with Dr. Marquez in the near future regarding further workup for metastatic recurrence non-small cell lung cancer, recommended follow-up with PCP in 1 week. Discharge Activity: Return to Normal Activity Weight Bearing Status: Weight bearing as tolerated Call your doctor if you observe: Fever of 101 or Higher, Shortness of breath, Dizziness, Fainting spells, Chest pain, Increased palpitations (irregular heartbeat), Uncontrolled pain Home Medications: Medications to take at Discharge ALPRAZolam [Xanax] 1 mg PO BID 05/30/16 Albuterol Inhaler [Ventolin Hfa] 1 - 2 puff INHALATION Q4H PRN PRN 05/30/16 Dexlansoprazole [Dexilant] 60 mg PO PRN PRN 05/30/16 Fluticasone 0.05% [Flonase Nasal [place]] 1 spray NASAL DAILY PRN 05/30/16 Levothyroxine [Synthroid] 88 mcg PO DAILY 05/30/16 Meloxicam [Mobic] 7.5 mg PO QHS 05/30/16 Potassium Chloride [K-Dur] 10 meq PO QODAY 05/30/16 Pravastatin [Pravachol] 20 mg PO QHS 05/30/16 Ipratropium/Albuterol Sulfate [Duoneb] 3 ml INHALATION Q6H.RT #120 ampul.neb 09/21 Buprenorphine 1 ea TD QWEEK 04/07/17 Ondansetron [Zofran Odt] 4 mg PO Q8H PRN PRN #10 tab 04/07/17 Guaifenesin/Dextromethorphan [Mucinex Dm ER 600-30 mg Tablet] 1 ea PO BID Lisinopril [Zestril] 10 mg PO DAILY 30 Days #30 tab 06/04/17 budesonide 0.25 mg/2 mL suspension for nebulization 0.25 mg INHALATION Q12H 03/24 carvedilol 25 mg tablet 25 mg PO DAILY tab 06/16/17 cholecalciferol (vitamin D3) 2,000 unit capsule 2,000 unit PO DAILY 06/16/17 furosemide 20 mg tablet 10 mg PO QDAY tab 06/16/17 melatonin 3 mg tablet 3 mg PO HS 06/16/17 montelukast 10 mg tablet 10 mg PO QPM 06/16/17 Tamsulosin HCl [Flomax] 0.4 mg PO DAILY@1730 #30 cap 11/30/17 Following Prescrptions Were Given to Patient: Tamsulosin HCl [Flomax] 0.4 mg PO DAILY@1730 #30 cap Primary Care Physician: Marsha Omalley, CHLOE-C [Primary Care Provider] - 2 Days Please follow up with your Primary Care Physician in: 1 week. Please Follow Up With: Pepe Marquez DO When: please call his office. Patient Instructions: ED Nausea Vomiting Disposition: Asstd Living/Non-Skill NH Minutes spent on discharge:: 26 Patient Condition:: Stable Medical Necessity - Tobacco Use Smoking Status: Former smoker Meaningful Use Info Meaningful Use Diagnoses (Choose all that apply): None applicable Code Visit OBSV E&M: 62296 Observation care discharge
== END 2017-11-30 14:39 | disposition home or self-care (01) | DRG 181 ==
LOC: ED 23:58 → PCU 11-30 07:07
PROVIDERS: Emergency Medicine; Admitting Provider Family Medicine; Emergency Provider Emergency Medicine; Family Provider Nurse Practitioner Adult Health; PCP Nurse Practitioner Adult Health; Visit Provider Hospitalist
DX: C34.90 Malignant neoplasm of unspecified part of unspecified bronchus or lung (principal); R11.2 Nausea with vomiting, unspecified; J96.11 Chronic respiratory failure with hypoxia; R33.9 Retention of urine, unspecified; F17.201 Nicotine dependence, unspecified, in remission; I25.10 Atherosclerotic heart disease of native coronary artery without angina pectoris; E03.9 Hypothyroidism, unspecified; E78.5 Hyperlipidemia, unspecified; J44.9 Chronic obstructive pulmonary disease, unspecified; I11.0 Hypertensive heart disease with heart failure; I50.9 Heart failure, unspecified; F41.9 Anxiety disorder, unspecified; Z92.21 Personal history of antineoplastic chemotherapy; Z99.81 Dependence on supplemental oxygen; Z86.73 Personal history of transient ischemic attack (TIA), and cerebral infarction without residual deficits; Z87.891 Personal history of nicotine dependence; Z79.899 Other long term (current) drug therapy; C78.7 Secondary malignant neoplasm of liver and intrahepatic bile duct
CPT/HCPCS: 36415; 74022; 80053; 82274; 83690; 85025; 85027; 85610; 93005; 94640; 96365; 96375; 96376; 97802; 99218; 99284; J7030; A4216; G0378; J2405; J3490

== ENCOUNTER 2017-12-09 18:13 | Emergency (ER) | payer MEDICARE, SELFPAY ==
[2017-12-09 18:57] VITALS: BP 126/79; PULSE 104; RESP 18; TEMP 36.3; O2SAT 100; BMI 24.4
[2017-12-09 20:11] LABS: Absolute Lymphocyte Count 0.88 X10^3/ul (0.83-4.51); Absolute Neutrophil Count 12.5 X10^3/uL (2.0-7.7); Basophil# 0.06 X10^3/uL; Basophil% 0.4 % (0-1); Eosinophil# 0.01 X10^3/uL; Eosinophils% 0.1 % (0-5); Hematocrit 41.1 % (37-47); Hemoglobin 13.4 g/dl (12.0-15.0); Lymphocyte # 0.88 X10^3/ul (4.0); Lymphocyte % 6.3 % (19-41); Mean Corp Hgb Conc 32.6 g/gl (32-36); Mean Corpuscular Hgb 29.6 pg (27.0-32.0); Mean Corpuscular Volume 90.7 fL (81-99); Monocyte# 0.43 X10^3/uL; Monocyte% 3.1 % (0-10); Neutrophil # 12.47 X10^3/uL (2.7-7.7); Platelet Count 221 K/mm3 (150-450); RBC Distribution Width CV 12.9 % (11.6-14.6); RBC Distribution Width SD 42.6 fl (35.1-43.9); Red Blood Count 4.53 M/mm3 (4.2-5.4); White Blood Count 13.9 K/mm3 (4.4-11.0)
[2017-12-09 20:12] LABS: POSITIVE COUNT NO; POSITIVE DIFFERENTIAL NO; POSITIVE MORPHOLOGY NO
[2017-12-09] MEDS: 0.9% Normal Saline 1,000 ML 1000 ML IV (20:12)
[2017-12-09] MEDS: proMETHazine 25 MG/ML Syringe 6.25 MG IV (20:12)
[2017-12-09 20:13] VITALS: PULSE 111; RESP 20; O2SAT 100
[2017-12-09 20:28] LABS: ALB/GLOB Ratio 0.9 RATIO (0.9-2.4); AST(SGOT) 21 U/L (15-37); Alanine Aminotransfer ALT/SGPT 16 U/L (13-56); Albumin, Serum 3.9 g/dL (3.2-5.0); Alkaline Phosphatase 98 U/L (45-117); Anion Gap 10 (5-15); BUN 19 mg/dL (7-18); BUN/Creat Ratio 16.5 RATIO (10-20); Calcium,Total 9.4 mg/dL (8.5-10.1); Chloride 102 mmol/L (98-107); Creatinine, Serum 1.15 mg/dL (0.55-1.02); EST Glomerular Filtration Rate 50 mL/min (>60); Est Glom Filt Rate - Afr Amer 60 mL/min (>60); Globulin 4.4 g/dL (2.2-4.2); Glucose 150 mg/dL (74-106); Potassium 4.6 mmol/L (3.5-5.1); Protein, Total 8.3 g/dL (6.4-8.2); Sodium Level 135 mmol/L (136-145)
--- NOTE | 2017-12-09 21:04 | ED.DCSUM_ITS ---
- ER Visit Summary Date of Service: 12/09/17 Chief Complaint: Nausea, vomiting History of Present Illness: The patient is a 72 F with history of COPD, metastatic lung cancer presents to the emergency department with nausea and vomiting. The patient has recurrent lung cancer with metastasis to the liver. She is currently following with Dr. Marquez. She has not started any treatment yet and is scheduled to discuss treatment options with him next week. The patient states that she ate some ribs yesterday. She states shortly thereafter , she began to have dry heaves, nausea, and vomiting. She did move her bowels normally today. She denies any pain. She states she feels like she cannot keep anything down. She has had no fever. She denies history of prior abdominal surgery. Physical Examination: Vital signs reviewed General: Well-nourished, well-developed Head: Normocephalic, atraumatic Eyes: Pupils equal and reactive, extraocular muscles intact Neck, supple, no lymphadenopathy Heart: Regular rate and rhythm Respiratory: No distress, clear bilaterally Abdomen: Soft, nontender, nondistended, no peritoneal signs Back: Nontender Extremities: Nontender, no edema, no cords Skin: Normal color no rash Neuro: Alert and oriented, no focal or lateralizing deficits Test Results: [] Emergency Department Course and Treatment: The patient has benign abdomen. She has no focal tenderness. She did have regular bowel movements a day. I really do not suspect obstruction given her lack of distention, tenderness, normal bowel sounds. IV was established. Screening labs relatively unremarkable. Patient was given fluids and Phenergan with some improvement but had persistent nausea. She was then given Zofran with resolution of her nausea but still had some belching and burning in her throat. With a GI cocktail this resolved. On reevaluation she is tolerating oral fluids. I do feel that she is safe to attempt outpatient therapy. She will be started on Zofran. She will be discharged home. Treatment Plan: [] Disposition: Discharge Impression: Nausea and vomiting This note was generated with [employer]ic[employer] dictation software. It may contain incorrect words, spelling, and punctuation that were not noted in review of the chart prior to signing ED Disposition - Plan for ED Patient: Chief Complaint: Nausea/Vomiting Instructions: ED Diet Vomiting Diarrhea Prescriptions: Ondansetron [Zofran Odt] 4 mg PO Q8H PRN PRN #10 tab PRN Reason: Nausea Referrals: Marsha Omalley, DRIER OPERATOR HELPER-C [Primary Care Provider] -
[2017-12-09] MEDS: Ondansetron 4 MG/2 ML Vial IV (21:36)
[2017-12-09 22:19] VITALS: PULSE 101; RESP 23; O2SAT 100
[2017-12-09] MEDS: Ondansetron ODT 4 MG Tablet PO (23:34)
[2017-12-09 23:38] VITALS: BP 120/68; PULSE 111; RESP 20; O2SAT 99
== END 2017-12-10 00:59 | disposition home or self-care (01) ==
LOC: ED 20:12
PROVIDERS: Emergency Provider Emergency Medicine; Family Provider Nurse Practitioner Adult Health; PCP Nurse Practitioner Adult Health
DX: R11.2 Nausea with vomiting, unspecified (principal); C34.90 Malignant neoplasm of unspecified part of unspecified bronchus or lung; C78.7 Secondary malignant neoplasm of liver and intrahepatic bile duct; J44.9 Chronic obstructive pulmonary disease, unspecified; Z79.899 Other long term (current) drug therapy; Z87.891 Personal history of nicotine dependence
CPT/HCPCS: 80053; 85025; 96361; 96365; 96375; 99285; J7030; J2405